=== PATIENT | male | born 1960 | race American Indian/Alaskan Native ===

== ENCOUNTER 2021-08-22 18:03 | Emergency (ER) | payer MEDICAID ==
--- NOTE | 2021-08-22 19:13 | Emergency Department Report ---
HPI - General Chief Complaint: Psych Time Seen by Provider: 08/22/21 19:02 - [facility] HPI: Room 25 The patient is a 60-year-old male present with a chief complaint of suicidal ideation. Patient has a history of bipolar disorder and states for the past "couple of days" he has had suicidal ideation. Patient denies any attempts at harming himself but states that his plan was to jump in front of a car ED Past Medical Hx - Past Medical History Hx Hypertension: Yes Hx CVA: Yes (X3, residual right-sided weakness) Hx Diabetes: Yes Hx Psychiatric Treatment: Yes (Bipolar disorder) - Surgical History Additional Surgical History: Craniotomy - Family History Family history: no significant - Social History Smoking Status: Never Smoker Substance Use Type: None (Denies illicit drug use), Alcohol (Occasional) ED Review of Systems ROS: Stated complaint: SI Other details as noted in HPI Constitutional: no symptoms reported Eyes: denies: eye pain ENT: denies: throat pain Respiratory: no symptoms reported Cardiovascular: denies: chest pain Endocrine: no symptoms reported Gastrointestinal: denies: abdominal pain Genitourinary: denies: dysuria Musculoskeletal: denies: back pain Neurological: denies: headache Psychiatric: suicidal thoughts Physical Exam - Physical Exam Vital Signs: Vital Signs 08/22/21 18:56 Blood Pressure 113/66 Physical Exam: GENERAL: The patient is well-developed well-nourished male lying on stretcher not appearing to be in acute distress. [] HEENT: Normocephalic. Atraumatic. Extraocular motions are intact. Patient has moist mucous membranes. NECK: Supple. Trachea midline CHEST/LUNGS: Clear to auscultation. There is no respiratory distress noted. HEART/CARDIOVASCULAR: Regular. There is no tachycardia. There is no gallop rub or murmur. ABDOMEN: Abdomen is soft, nontender. Patient has normal bowel sounds. There is no abdominal distention. SKIN: There is no rash. There is no edema. There is no diaphoresis. NEURO: The patient is awake, alert, and oriented. The patient is cooperative. The patient has right-sided weakness from previous CVA. The patient has normal speech. GCS 15 MUSCULOSKELETAL: There is no evidence of acute injury. ED Course Vital Signs 08/22/21 18:56 Blood Pressure 113/66 ED Medical Decision Making - Lab Data Result diagrams: 08/22/21 22:29 08/22/21 22:29 Laboratory Tests 08/22/21 08/22/21 08/22/21 20:21 20:21 22:29 WBC RBC Hgb Hct MCV MCH MCHC RDW Plt Count Sodium Potassium Chloride Carbon Dioxide Anion Gap BUN Creatinine Estimated GFR BUN/Creatinine Ratio Glucose Calcium Urine Color Yellow Urine Turbidity Clear Urine pH 5.0 Ur Specific [place] 1.005 Urine Protein 100 mg/dl Urine Glucose (UA) Neg Urine Ketones Neg Urine Blood Neg Urine Nitrite Neg Urine Bilirubin Neg Urine Urobilinogen < 2.0 Ur Leukocyte Esterase Neg Urine WBC (Auto) < 1.0 Urine RBC (Auto) 1.0 U Epithel Cells (Auto) 1.0 Salicylates < 0.3 L Urine Opiates Screen Negative Urine Methadone Screen Negative Acetaminophen Ur Barbiturates Screen Negative Ur Phencyclidine Scrn Negative Ur Amphetamines Screen Negative U Benzodiazepines Scrn Negative Urine Cocaine Screen Negative U Marijuana (THC) Screen Negative Drugs of Abuse Note Disclamer Plasma/Serum Alcohol 08/22/21 08/22/21 08/22/21 22:29 22:29 22:29 WBC RBC Hgb Hct MCV MCH MCHC RDW Plt Count Sodium 143 Potassium 4.8 Chloride 106.3 Carbon Dioxide 26 Anion Gap 16 BUN 8 L Creatinine 1.1 Estimated GFR > 60 BUN/Creatinine Ratio 7 Glucose 88 Calcium 9.0 Urine Color Urine Turbidity Urine pH Ur Specific [place] Urine Protein Urine Glucose (UA) Urine Ketones Urine Blood Urine Nitrite Urine Bilirubin Urine Urobilinogen Ur Leukocyte Esterase Urine WBC (Auto) Urine RBC (Auto) U Epithel Cells (Auto) Salicylates Urine Opiates Screen Urine Methadone Screen Acetaminophen 5.0 L Ur Barbiturates Screen Ur Phencyclidine Scrn Ur Amphetamines Screen U Benzodiazepines Scrn Urine Cocaine Screen U Marijuana (THC) Screen Drugs of Abuse Note Plasma/Serum Alcohol 0.29 H 08/22/21 22:29 WBC 4.1 L RBC 3.55 L Hgb 9.8 L Hct 30.7 L MCV 87 MCH 28 MCHC 32 RDW 17.6 H Plt Count 343 Sodium Potassium Chloride Carbon Dioxide Anion Gap BUN Creatinine Estimated GFR BUN/Creatinine Ratio Glucose Calcium Urine Color Urine Turbidity Urine pH Ur Specific [place] Urine Protein Urine Glucose (UA) Urine Ketones Urine Blood Urine Nitrite Urine Bilirubin Urine Urobilinogen Ur Leukocyte Esterase Urine WBC (Auto) Urine RBC (Auto) U Epithel Cells (Auto) Salicylates Urine Opiates Screen Urine Methadone Screen Acetaminophen Ur Barbiturates Screen Ur Phencyclidine Scrn Ur Amphetamines Screen U Benzodiazepines Scrn Urine Cocaine Screen U Marijuana (THC) Screen Drugs of Abuse Note Plasma/Serum Alcohol - Differential Diagnosis Suicidal ideation Critical care attestation.: If time is entered above; I have spent that time in minutes in the direct care of this critically ill patient, excluding procedure time. ED Disposition Clinical Impression: Suicidal ideation Disposition: 30 STILL A PATIENT Is pt being admited?: No Does the pt Need Aspirin: No Condition: Stable Time of Disposition: 23:27 (Awaiting psych eval)
[2021-08-22 20:37] LABS: Bilirubin,Urine NEG (Negative); Blood,Urine NEG (Negative); Color,Urine Yellow (Yellow); Urobilinogen,Urine < 2.0 mg/dL (<2.0)
[2021-08-22 20:38] LABS: WBC,Urine < 1.0 /HPF (0.0-6.0)
[2021-08-22 20:50] LABS: Amphetamine Screen,Urine Negative; Benzodiazepines Screen,Urine Negative; Cannabinoid Screen,Urine Negative; Cocaine Screen,Urine Negative; Methadone Screen,Urine Negative; Opiate Screen,Urine Negative
[2021-08-22 23:18] LABS: BUN/Creatinine Ratio 7; Blood Urea Nitrogen 8 mg/dL (9-20); Hematocrit 30.7 % (35.5-45.6); Hemoglobin 9.8 gm/dl (11.8-15.2); Hemolysis Index 1; Mean Corpuscular HGB Conc 32 % (32-34); Mean Corpuscular Volume 87 fl (84-94); Platelet Count 343 K/mm3 (140-440); Red Blood Count 3.55 M/mm3 (3.65-5.03); Red Cell Distribution Width 17.6 % (13.2-15.2)
[2021-08-23 02:06] LABS: Total Cells Counted 100
[2021-08-23 02:07] LABS: Anisocytosis 1+; Target Cells 1+
[2021-08-23 02:08] LABS: Ovalocytes Few; Platelet Estimate Consistent w Auto
--- NOTE | 2021-08-23 13:02 | Event Note ---
Date: 08/23/21 Patient reported that he would like to go home and wanted to know what time the psychiatric is coming to see him this morning. He was waiting on the hallway for the psychiatrist. He said he is too cold in the room. Patient has not been seen by psychiatric this morning. No other modifying or associated complaint reported.
[2021-08-23] MEDS ORDERED: ZIPRASIDONE MESYLATE 20 MG VIAL IM ONE (13:16)
--- NOTE | 2021-08-23 13:23 | Consultation ---
History of Present Illness - Reason for Consult Consult date: 08/23/21 Reason for consult: mental health evaluation - History of Present Psychiatric Illness HPI: The patient is a 60-year-old male present with a chief complaint of suicidal ideation. Patient has a history of bipolar disorder and states for the past "couple of days" he has had suicidal ideation. Patient denies any attempts at harming himself but states that his plan was to jump in front of a car. The patient was seen. He is agitated requesting to go. The patient seems to be confused. " I want to go to [place], where do you catch the bus at." PAST PSYCHIATRIC HISTORY: PAST MEDICAL HISTORY: None reported or document Family Psychiatric History: None reported or documented SOCIAL HISTORY REVIEW OF SYSTEMS MENTAL STATUS EXAMINATION Assessment and Plan (1) Bipolar disorder Treatment Plan 1013 Depakote 125mg po BID Trazodone 50mg po QHS Continue home meds Medical: per primary Sitter: per primary Disposition: Recommend acute psychiatric inpatient treatment. Will follow. Thanks Case staffed with Dr. Mccain Medications and Allergies Allergies Allergy/AdvReac Type Severity Reaction Status Date / Time No Known Allergies Allergy Verified 08/22/21 18:11 Mental Status Exam - Vital signs Last Vital Signs Temp 97.8 F 08/22/21 19:26 Pulse 97 H 08/23/21 09:39 Resp 18 08/23/21 09:39 BP 150/96 08/23/21 09:39 Pulse Ox 97 08/23/21 09:39 Results Result Diagrams: 08/22/21 22:29 08/22/21 22:29 Abnormal lab results 08/22/21 08/22/21 08/22/21 Range/Units 22:29 22:29 22:29 WBC (4.5-11.0) K/mm3 RBC (3.65-5.03) M/mm3 Hgb (11.8-15.2) gm/dl Hct (35.5-45.6) % RDW (13.2-15.2) % Seg Neuts % (Manual) (40.0-70.0) % Lymphocytes % (Manual) (13.4-35.0) % Seg Neutrophils # Man (1.8-7.7) K/mm3 BUN 8 L (9-20) mg/dL Salicylates < 0.3 L (2.8-20.0) mg/dL Acetaminophen 5.0 L (10.0-30.0) ug/mL Plasma/Serum Alcohol (0-0.07) % 08/22/21 08/22/21 Range/Units 22:29 22:29 WBC 4.1 L (4.5-11.0) K/mm3 RBC 3.55 L (3.65-5.03) M/mm3 Hgb 9.8 L (11.8-15.2) gm/dl Hct 30.7 L (35.5-45.6) % RDW 17.6 H (13.2-15.2) % Seg Neuts % (Manual) 36.0 L (40.0-70.0) % Lymphocytes % (Manual) 60.0 H (13.4-35.0) % Seg Neutrophils # Man 1.5 L (1.8-7.7) K/mm3 BUN (9-20) mg/dL Salicylates (2.8-20.0) mg/dL Acetaminophen (10.0-30.0) ug/mL Plasma/Serum Alcohol 0.29 H (0-0.07) % All other labs normal.
[2021-08-23] MEDS ORDERED: traZODone 50 MG TAB PO SCH (22:00)
[2021-08-24] MEDS: DIVALPROEX DR 125 MG TAB PO SCH ×2 (09:38→22:27)
--- NOTE | 2021-08-24 11:27 | Progress Note ---
Subjective - Reason for Consult Consult date: 08/24/21 Reason for consult: SI - Chief Complaint Chief complaint: The patient was seen today. He is confused and says "why did they bring me way out here." He says he lives by [facility], and thought he was at [facility]. The patient is still endorsing suicidal thoughts. He says "I don't want to live no more. But I need to get to another place where I live." REVIEW OF SYSTEMS MENTAL STATUS EXAMINATION Assessment and Plan (1) Bipolar disorder Treatment Plan 1013 Start Lexapro 5mg po daily Depakote 125mg po BID Trazodone 50mg po QHS Medical: per primary Sitter: per primary Disposition: Recommend acute psychiatric inpatient treatment. Will follow. Thanks Case staffed with Dr. Mccain Mental Status Exam - Vital signs Last Vital Signs Temp 97.8 F 08/24/21 08:29 Pulse 88 08/24/21 08:29 Resp 17 08/24/21 08:29 BP 102/92 08/24/21 08:29 Pulse Ox 100 08/24/21 08:29
[2021-08-24] MEDS ORDERED: ACETAMINOPHEN 325 MG TAB PO ONE ×2 (12:01→18:07)
--- NOTE | 2021-08-24 12:22 | Event Note ---
Date: 08/24/21 Pt seen by the psych after my round yesterday and they recommend psychiatry inpatient. Pt complain of muscle aches this morning and requesting for Tylenol. He was ordered for tylenol for his pain. He also mentioned that there is nothing wrong with him and he wanted to go home. I told patient to be sure to express this to the psychiatry team today. No other modifying or associated symptoms reported.
[2021-08-24] MEDS: ESCITALOPRAM 10 MG TAB PO SCH (14:37)
[2021-08-25 08:55] VITALS: BP 120/62
[2021-08-25] MEDS ORDERED: ACETAMINOPHEN 325 MG TAB PO ONE (09:19)
--- NOTE | 2021-08-25 09:32 | Progress Note ---
Subjective - Reason for Consult Consult date: 08/25/21 Reason for consult: SI - Chief Complaint Chief complaint: The patient was seen today. He says he feels much better and is ready to go home. He says "I'm doing pretty good just in a lot of pain." The patient says his hand and feet hurt. He says he didn't sleep well due to the pain. He denies SI/HI or hallucinations of any kind. REVIEW OF SYSTEMS Constitutional: Negative for weight loss ENT: Negative for stridor Respiratory: Negative for cough or hemoptysis All other systems reviewed and are negative MENTAL STATUS EXAMINATION General Appearance and Behavior: Age appropriate, wearing appropriate clothes, cooperative, polite with questioning, good eye contact Cooperation: cooperative Psychomotor Behavior: Psychomotor normal Mood: much better Affect and affective range: congruent with stated mood Thought Process: Goal directed Thought Content: Reality oriented Speech: Normal volume, Regular rate and rhythm Suicidal Ideation: Denies Homicidal Ideation: Denies Hallucination: Sometimes Delusions: None elicited Impulse Control: Limited Insight and Judgment: Limited Memory: Intact Attention:attentive Orientation: Alert and oriented Assessment and Plan (1) Bipolar disorder Treatment Plan d/c 1013 Lexapro 5mg po daily Depakote 125mg po BID Trazodone 50mg po QHS Medical: per primary Sitter: per primary Disposition: Do not recommend acute psychiatric inpatient treatment. [employer] to place all necessary resources in the chart Will sign off. Thanks Case staffed with Dr. Mccain Mental Status Exam - Vital signs Last Vital Signs Temp 98.0 F 08/25/21 08:47 Pulse 92 H 08/25/21 08:47 Resp 15 08/25/21 08:47 BP 120/62 08/25/21 08:47 Pulse Ox 100 08/25/21 08:47
--- NOTE | 2021-08-25 11:51 | Event Note ---
Date: 08/25/21 Patient has no suicidal or homicidal ideation patient has been clear by psychiatry for discharge. After evaluation patient states that he is ready to go
[2021-08-25] MEDS: ESCITALOPRAM 10 MG TAB PO SCH (12:47)
[2021-08-25] MEDS: DIVALPROEX DR 125 MG TAB PO SCH (12:47)
== END 2021-08-25 12:56 | disposition still patient (30) ==
LOC: EEVIPCON 18:03 → ED 18:03
DX: R45.851 Suicidal ideations (principal); I10 Essential (primary) hypertension; E11.9 Type 2 diabetes mellitus without complications; Z20.822 Contact with and (suspected) exposure to COVID-19
CPT/HCPCS: 36415; 80048; 80307; 81001; 85007; 85025; 96372; 99284; J3486; U0003; 80320; G0480